=== PATIENT | male | born 1990 | race Caucasian/White ===

== ENCOUNTER 2023-02-21 18:03 | Outpatient (REF) | payer MEDICARE, MEDICAID, SELFPAY ==
[2023-02-27 14:33] LABS: C.Trachomatis RNA TMA, Rectal NOT DETECTED; N.Gonorrhoeae RNA TMA, Rectal NOT DETECTED
[2023-02-27 15:03] LABS: C. Trachomatis RNA TMA, Throat NOT DETECTED; N. gonorrhoeae RNA TMA, Throat NOT DETECTED
== END 2023-02-21 18:04 | disposition home or self-care (01) ==
LOC: HO.HHCLNP 18:03
PROVIDERS: Visit Provider Internal Medicine
DX: B20 Human immunodeficiency virus [HIV] disease (principal)
CPT/HCPCS: 87491; 87591

== ENCOUNTER 2023-03-15 15:24 | Outpatient (REF) | payer MEDICARE, MEDICAID, SELFPAY | END 2023-03-15 15:25 | disposition home or self-care (01) | LOC: HO.HHCL 15:24 | PROVIDERS: Referring Provider Internal Medicine; Visit Provider Nurse Practitioner Family | DX: Z00.00 Encounter for general adult medical examination without abnormal findings (principal); Z11.4 Encounter for screening for human immunodeficiency virus [HIV] | CPT/HCPCS: 36415; 80053; 80061; 84443; 85025; 86359; 86360; 87536 ==

== ENCOUNTER 2023-08-16 09:58 | Outpatient (REF) | payer MEDICARE, MEDICAID, SELFPAY ==
[2023-08-16 11:22] LABS: Appearance Urine Clear; Color Urine Yellow; Glucose Urine UA Negative (Negative); Leukocyte Esterase Urine Negative (Negative); Nitrite Urine Negative (Negative); Urine Blood Negative (Negative); Urine Ketones Negative (Negative); Urine Protein Negative (Neg-Trace)
[2023-08-16 11:26] LABS: MANUAL DIFF FLAG NO
[2023-08-16 11:31] LABS: Basophils Percent Auto 0.2 % (0-2); Eosinophils Absolute Auto 0.1 X10*3/uL (0.0-0.4); Eosinophils Percent Auto 0.7 % (0-4); Hematocrit 45.1 % (42.0-52.0); Hemoglobin 15.3 g/dl (14.0-18.0); Imm Gran Abs Auto 0.06 X10*3/uL (0.00-0.03); Imm Gran Pct Auto 0.7 % (0.0-0.4); Lymphocytes Absolute Auto 3.2 X10*3/uL (1.2-4.9); Lymphocytes Percent Auto 36.5 % (20-40); Mean Corpuscular HGB Conc 33.9 g/dl (31.0-36.0); Mean Corpuscular Hemoglobin 30.1 pg (27.0-33.0); Mean Corpuscular Volume 88.6 fL (80.0-98.0); Mean Platelet Volume 10.1 fL (9.4-12.4); Monocytes Absolute Auto 0.9 X10*3/uL (0.1-1.2); Monocytes Percent Auto 10.3 % (2-11); Neutrophils Absolute Auto 4.6 x10*3/uL (2.0-8.3); Neutrophils Percent Auto 51.6 % (45-73); Platelet Count 254 X10*3/uL (160-400); Red Blood Count 5.09 X10*6/uL (4.60-5.80); Red Cell Distribution Width 12.5 % (11.0-16.0); White Blood Count 8.9 X10*3/uL (4.8-10.8)
[2023-08-16 12:41] LABS: Alanine Aminotransferase 44 U/L (0-40); Alkaline Phosphatase 87 U/L (39-117); Anion Gap 10 (12-20); Aspartate Amino Transferase 27 U/L (5-37); Bilirubin Total 0.3 mg/dL (0.0-1.0); Blood Urea Nitrogen 13 mg/dL (9-16); Carbon Dioxide 27 mmol/L (22-29); Chloride 108 mmol/L (96-108); Estimated Glomerular Filt Rate > 60; Glucose Random 79 mg/dL (60-115); Potassium 4.2 mmol/L (3.3-5.1); Sodium 141 mmol/L (135-145); Total Protein 7.4 g/dL (6.5-8.0)
[2023-08-17 15:19] LABS: HIV RNA PCR Qn Copies 399 copies/mL (NOT DETECTED)
[2023-08-19 14:09] LABS: RPR Rapid Plasma Reagin REACTIVE (NON-REACTIVE)
== END 2023-08-16 09:59 | disposition home or self-care (01) ==
LOC: HO.HHCL 09:58
PROVIDERS: Visit Provider Internal Medicine
DX: Z21 Asymptomatic human immunodeficiency virus [HIV] infection status (principal)
CPT/HCPCS: 36415; 80053; 81003; 85025; 86592; 86593; 87536

== ENCOUNTER 2023-08-24 02:43 | Emergency (ER) | payer MEDICARE, MEDICAID, SELFPAY ==
[2023-08-24 02:58] VITALS: BP 134/86; PULSE 93; RESP 18; TEMP 36.8; O2SAT 97; BMI 38.4
[2023-08-24 03:13] LABS: Basophils Percent Auto 0.4 % (0-2); Eosinophils Absolute Auto 0.2 X10*3/uL (0.0-0.4); Eosinophils Percent Auto 2.1 % (0-4); Hematocrit 44.3 % (42.0-52.0); Hemoglobin 15.4 g/dl (14.0-18.0); Imm Gran Abs Auto 0.07 X10*3/uL (0.00-0.03); Imm Gran Pct Auto 0.8 % (0.0-0.4); Lymphocytes Absolute Auto 3.7 X10*3/uL (1.2-4.9); Lymphocytes Percent Auto 44.9 % (20-40); MANUAL DIFF FLAG NO; Mean Corpuscular HGB Conc 34.8 g/dl (31.0-36.0); Mean Corpuscular Hemoglobin 30.2 pg (27.0-33.0); Mean Corpuscular Volume 86.9 fL (80.0-98.0); Mean Platelet Volume 9.7 fL (9.4-12.4); Monocytes Absolute Auto 0.7 X10*3/uL (0.1-1.2); Monocytes Percent Auto 8.8 % (2-11); Neutrophils Absolute Auto 3.6 x10*3/uL (2.0-8.3); Platelet Count 216 X10*3/uL (160-400); Red Cell Distribution Width 12.5 % (11.0-16.0); White Blood Count 8.3 X10*3/uL (4.8-10.8)
[2023-08-24 03:26] LABS: Alanine Aminotransferase 40 U/L (0-40); Albumin Level 3.6 g/dL (3.5-5.0); Alkaline Phosphatase 100 U/L (39-117); Anion Gap 11 (12-20); Aspartate Amino Transferase 22 U/L (5-37); Bilirubin Total 0.2 mg/dL (0.0-1.0); Blood Urea Nitrogen 13 mg/dL (9-16); Calcium 8.8 mg/dL (8.4-10.2); Carbon Dioxide 22 mmol/L (22-29); Chloride 113 mmol/L (96-108); Estimated Glomerular Filt Rate > 60; Glucose Random 109 mg/dL (60-115); Potassium 3.9 mmol/L (3.3-5.1); Sodium 142 mmol/L (135-145); Total Protein 6.8 g/dL (6.5-8.0)
--- NOTE | 2023-08-24 04:27 | ED.NAVMDI ---
HPI - Nausea/Vomiting/Diarrhea General Chief complaint: Abdominal Pain Stated complaint: Diarrhea/Nausea Time Seen by Provider: 08/24/23 04:10 Source: patient Mode of arrival: ambulatory Limitations: no limitations History of Present Illness HPI Narrative: 33 yo male with PMH of HIV undetectal viral load on meds presents after eating a chili dog on from street cart in [place] had n/v/d and cramps that are improving had brief blood in stool but that improved he feels better went to work at [employer] they found out send him here for clearanace. MD elicited complaint: nausea, vomiting, diarrhea and abdominal pain Onset (ago): day(s) ( ) Description of vomiting: food contents Description of diarrhea: watery Associated nausea: Yes Associated abdominal pain: Yes Location of pain: diffuse Pain consistency: now resolved Severity: mild Quality: cramping Exacerbating factors: eating Relieving factors: none Context: possible food poisoning and sick contacts Associated symptoms: denies other symptoms Related Data Previous Rx's Medication Instructions Recorded ondansetron 4 mg disintegrating 4 mg PO Q8H PRN nausea and 08/24/23 tablet vomiting #20 tabs Allergies Allergy/AdvReac Type Severity Reaction Status Date / Time No Known Allergies Allergy Unverified 08/20/23 12:39 Review of Systems Review of Systems: Constitutional : No Weight loss, No Fever, No Chills ENT/Mouth : No sore throat, No Rhinorrhea Eyes: No Swelling, No Redness Cardiovascular : No Chest Pain, No SOB, NoEdema Respiratory : No Cough, No Sputum, No Wheezing Gastrointestinal : Positive Nausea, no Vomiting, positive Diarrhea, no abdominal Pain Genitourinary : No Dysuria, No Urinary Frequency, No Hematuria, No Urgency Musculoskeletal : No joint pain, No Myalgias, No Joint Swelling Skin : No Skin Lesions, No rash Neuro : No Weakness, No Numbness, No Dizziness, No Headache Psych : No Anxiety/Panic, No Depression All other systems reviewed and are negative. Gastrointestinal: Gastrointestinal: Reports nausea PMFSH Past Medical History Attestation statement: The following information was validated with the patient. Source: old records reviewed Medical History HIV (human immunodeficiency virus infection) Social History Social History (Updated 08/24/23 @ 04:38 by Lottie Interiano DO) Patient Tobacco Use Status: Never used Tobacco Physical Exam Vital Signs: Vital Signs: Last Vital Signs Temp 98.3 F 08/24/23 02:58 Pulse 93 08/24/23 02:58 Resp 18 08/24/23 02:58 BP 134/86 08/24/23 02:58 Pulse Ox 97 08/24/23 02:58 O2 Del Method Room Air 08/24/23 02:58 BMI result Body Mass Index 38.4 Appearance: Alert. Oriented X3. No acute distress. Eyes: Pupils equal, round and reactive to light. ENT: Pharynx normal. Neck: Normal inspection. Neck supple. CVS: Normal heart rate and rhythm. Pulses normal. Respiratory: No respiratory distress. Breath sounds normal. Abdomen: Soft and nontender. Skin: Skin warm and dry. Normal skin color. Normal skin turgor. Extremities: No lower extremity edema. No calf ttp Neuro: Oriented X 3. No motor deficit. No sensory deficit. Medical Decision Making Medical Decision Making [facility] Narrative: 33 yo male witih food exposure now with resolved n/v abdominal cramps gone and diarrhea improved did see episode of pink diarrhea but no tasneem clots. He has HIV but viral loads undetectable at this time likely food toxicity labs reassuring can be DC will send home wi supportive care. Differential Diagnosis Differential Diagnoses: The differential diagnosis associated with the presentation includes food poisoning, viral syndrome Admission/Observation Consideration of admission/observation: Escalation of care including admission/observation considered labs reassuring stable for DC Lab Data [facility] Lab Attestation statement: I reviewed the patient's lab results. 08/24/23 03:09 08/24/23 03:09 Labs: Lab Results 08/24/23 Range/Units 03:09 WBC 8.3 (4.8-10.8) X10*3/uL RBC 5.10 (4.60-5.80) X10*6/uL Hgb 15.4 (14.0-18.0) g/dl Hct 44.3 (42.0-52.0) % MCV 86.9 (80.0-98.0) fL MCH 30.2 (27.0-33.0) pg MCHC 34.8 (31.0-36.0) g/dl RDW 12.5 (11.0-16.0) % Plt Count 216 (160-400) X10*3/uL MPV 9.7 (9.4-12.4) fL Immature Gran % (Auto) 0.8 H (0.0-0.4) % Neut % (Auto) 43.0 L (45-73) % Lymph % (Auto) 44.9 H (20-40) % Kingfisher % (Auto) 8.8 (2-11) % Eos % (Auto) 2.1 (0-4) % Baso % (Auto) 0.4 (0-2) % Lymph # (Auto) 3.7 (1.2-4.9) X10*3/uL Kingfisher # (Auto) 0.7 (0.1-1.2) X10*3/uL Eos # (Auto) 0.2 (0.0-0.4) X10*3/uL Baso # (Auto) 0.0 (0.0-0.2) X10*3/uL Abs Immat Gran (auto) 0.07 H (0.00-0.03) X10*3/uL Absolute Neuts (auto) 3.6 (2.0-8.3) x10*3/uL Absolute Nucleated RBC 0.000 (0.0-0.012) X10*3/uL Nucleated RBC % (auto) 0.0 (0.0-0.2) /100WBC Sodium 142 (135-145) mmol/L Potassium 3.9 (3.3-5.1) mmol/L Chloride 113 H (96-108) mmol/L Carbon Dioxide 22 (22-29) mmol/L Anion Gap 11 L (12-20) BUN 13 (9-16) mg/dL Creatinine 0.72 (0.5-1.4) mg/dL Estim Creat Clear Calc 200.0 Estimated GFR > 60 Random Glucose 109 (60-115) mg/dL Calcium 8.8 (8.4-10.2) mg/dL Total Bilirubin 0.2 (0.0-1.0) mg/dL AST 22 (5-37) U/L ALT 40 (0-40) U/L Alkaline Phosphatase 100 (39-117) U/L Total Protein 6.8 (6.5-8.0) g/dL Albumin 3.6 (3.5-5.0) g/dL Independent Historian Clinical information obtained from an independent historian. History obtained from or confirmed by: Friend Prescription Management I considered prescription management with: Other Discharge Plan Discharge Clinical Impression: Food poisoning Patient Disposition: Home, Self-Care Instructions: Food Poisoning (ED) Additional Instructions: return for increased pain, fevers, clots in stool or any other concerns. you can take immodium if you do not have any of the above such as worsening pain, feverss, increased bleeding Prescriptions: New ondansetron 4 mg tablet,disintegrating 4 mg PO Q8H PRN (Reason: nausea and vomiting) Qty: 20 0RF Stand Alone Forms: Work/School Release
[2023-08-24 04:38] VITALS: BP 134/86; PULSE 93; RESP 18; TEMP 36.8; O2SAT 97
== END 2023-08-24 04:39 | disposition home or self-care (01) ==
PROVIDERS: Emergency Provider Emergency Medicine; PCP Nurse Practitioner Family
DX: A05.9 Bacterial foodborne intoxication, unspecified (principal); R11.2 Nausea with vomiting, unspecified; R19.7 Diarrhea, unspecified; B20 Human immunodeficiency virus [HIV] disease
CPT/HCPCS: 36415; 80053; 85025; 99283

== ENCOUNTER 2023-08-25 09:11 | Emergency (ER) | payer OTHER, MEDICARE, MEDICAID, SELFPAY ==
--- NOTE | ~2023-08-25 | XR_ITS ---
EXAMINATION: XR LUMBOSACRAL SPINE CLINICAL INFORMATION: Reason for Exam right lumbar pain s/p heavy lifting COMPARISON: Lumbar spine radiographs 10/01/2021 TECHNIQUE: 3 views of the lumbar spine FINDINGS: 5 nonrib-bearing lumbar-type vertebral bodies. Vertebral body heights are maintained. Alignment is maintained. Disc space heights are maintained. Paravertebral soft tissues are unremarkable. XR/XR lumbar spine 2-3V IMPRESSION: * Unremarkable lumbar spine radiographs.
[2023-08-25 09:19] VITALS: BP 146/74; PULSE 86; RESP 16; TEMP 36.7; O2SAT 98; BMI 36.5
--- NOTE | 2023-08-25 09:43 | ED_ITS ---
HPI - Back Pain/Injury General Chief Complaint: Back Pain/Injury Stated Complaint: Work injury - seen yesterday Time Seen by Provider: 08/25/23 09:28 Source: patient Mode of arrival: ambulatory Limitations: no limitations History of Present Illness HPI Narrative: 33 year old male with pmhx significant for HIV presents to the ED today for evaluation of right lower back pain s/p heavy lifting prior to arrival. He s tates he was working as an [employer] employee when he attempted to catch a 60 lb box and felt his right lower back strain. Since this time he endorses severe pain to his right lower back and states I strained something . Pain is localized to his right lower back and does not radiate. States the area is tender to the touch. Moving/ambulating exacerbates the pain. Reports taking 200 mg of Tylenol prior to arrival. This has never happened to him before. Denies history of back problems. Denies history of IV drug use. Denies history of spinal surgeries. Denies fever, chills, nausea or vomiting, dysuria, hematuria, numbness/tingling/weakness of the lower extremities, saddle anesthesia, bowel or bladder incontinence or retention. Related Data Previous Rx's Medication Instructions Recorded ondansetron 4 mg disintegrating 4 mg PO Q8H PRN nausea and 08/24/23 tablet vomiting #20 tabs cyclobenzaprine 5 mg tablet 5 mg PO BEDTIME PRN muscle spasm 08/25/23 #7 tabs lidocaine 5 % topical patch 1 patch topical DAILY #15 ea 08/25/23 (Lidoderm) naproxen 500 mg tablet 500 mg PO Q8-12H PRN pain (scale 08/25/23 score 4-6) #10 tabs Allergies Allergy/AdvReac Type Severity Reaction Status Date / Time No Known Allergies Allergy Unverified 08/20/23 12:39 Review of Systems Review of Systems: Constitutional: No fever, chills, fatigue, night sweats, weight changes ENT/Mouth: No ear pain, hearing loss, nasal congestion, sinus pain, rhinorrhea, sore throat Eyes: No eye pain, swelling, redness, vision changes, discharge Cardio: No chest pain, palpitations, WOOD, orthopnea, peripheral edema Pulm: No SOB, cough, sputum, wheezing, dyspnea, hemoptysis GI: No nausea, vomiting, hematemesis, abdominal pain, diarrhea, constipation, hematochezia, melena : No irregular bleeding, dysuria, frequency, urgency, hesitancy, hematuria, flank pain, urinary flow changes, urinary incontinence or retention MSK: +back pain, No neck pain, joint pain, myalgias Skin: No lesions, rashes Neuro: No weakness, numbness, paresthesias, LOC, dizziness, headache All other systems reviewed and are negative. [facility] [place] Past Medical History Attestation statement: The following information was validated with the patient. Source: old records reviewed and nursing notes reviewed Medical History HIV (human immunodeficiency virus infection) Social History Social History Patient Tobacco Use Status: Never used Tobacco Smoked in Last 30 Days: No Advance Directives: Yes Advance Directives Information Provided: Yes Advance Directives on File: No Physical Exam Vital Signs: Vital Signs: Last Vital Signs Temp 97.9 F 08/25/23 13:43 Pulse 72 08/25/23 13:43 Resp 18 08/25/23 13:43 BP 131/82 08/25/23 13:43 Pulse Ox 98 08/25/23 13:43 O2 Del Method Room Air 08/25/23 13:43 BMI result Body Mass Index 36.5 Patient hypertensive. Afebrile. Const: Other: + utilizing a wheelchair from triage to ED bed General: cooperative, healthy appearing, comfortable, no acute distress, alert and awake Orientation/consciousness: patient oriented x3 HEENT: Head: Yes normal to inspection, Yes normocephalic and Yes atraumatic Eyes: General: appearance normal, both eyes and all related structures Pupils: Equal, round and reactive pupils present EOM: EOMs intact bilaterally Neck: Other: + no cervical midline spinous tenderness or step-off deformity. Neck: Yes normal visual inspection, Yes full ROM and Yes no meningeal signs Resp: Effort & Inspection: normal respiratory effort and able to speak in complete sentences Auscultation: clear to auscultation bilaterally Cardio: Rate: regular rate Rhythm: regular rhythm GI: Inspection: Yes normal to inspection and No abdominal wall ecchymosis Palpation (GI): Soft to palpation and nontender : General: Yes no CVA tenderness Back/Spine/Pelvis: Other: No overlying deformity or cellulitic changes. No warmth. No midline spinous tenderness or step-off deformity. + lumbar paraspinal muscle tenderness to palpation. No palpable mass. Positive straight leg raise on right Back: no CVA tenderness Skin: General skin exam: no rashes or lesions noted Neuro: Other: Strength 5/5 intact throughout. No saddle anesthesia.?Sensation intact to light touch.?Neurovascular intact distally.? 2+ patellar DTRs intact bilaterally. General: patient oriented x3, tone normal, moves all extremities and no meningeal signs Cranial nerves: Yes Equal, round and reactive pupils present Gait exam (Neuro): Normal gait present Extrem: General: Yes normal to inspection, Yes full ROM and Yes capillary refill normal Course Course Course Narrative: 1217-- On re-valuation, patient reports significant improvement in pain with Flexeril, Toradol lidocaine patch. He is able to move around with only slight discomfort now. Given improvement in symptoms muscle relaxer, patient likely has a strain of the right lumbar paraspinal region. On review of x-ray lumbar spine, I do not appreciate any acute fracture, compression. Awaiting x-ray results to officially rule out fracture. 1350-- x-ray lumbar spine unremarkable. No evidence of soft tissue injury or vertebral fracture. Discussed results with patient. Will send patient home with Flexeril, Lidoderm patch and naproxen. he is ambulating with steady gait. his friend at bedside will be driving him home today. Patient has remained stable throughout ED visit today. Discussed worrisome signs and symptoms and when to return to the ED. All questions answered at this time. Patient is agreeable with disposition and stable for discharge. Medications Administered Discontinued Medications Generic Name Dose Route Start Last Admin Trade Name Freq PRN Reason Stop Dose Admin Cyclobenzaprine HCl 10 mg 08/25/23 09:46 08/25/23 09:55 Cyclobenzaprine Hcl 10 Mg Tablet PO 08/25/23 09:47 10 mg ONCE ONE Administration Ketorolac Tromethamine 30 mg 08/25/23 09:46 08/25/23 09:55 Ketorolac Tromethamine 30 Mg/Ml Vial IM 08/25/23 09:47 30 mg ONCE ONE Administration Lidocaine 1 patch 08/25/23 09:46 08/25/23 09:55 Lidocaine 4 % Patch Adh..Patch TRANSDERMA 08/25/23 09:47 1 patch ONCE ONE Administration Protocol Medical Decision Making Medical Decision Making [facility] Narrative: 33 year old male with pmhx significant for HIV presents to the ED today for evaluation of right lower back pain s/p heavy lifting prior to arrival. Patient hypertensive, vitals otherwise WNL. Afebrile. He is nontoxic-appearing and in no acute distress. Lying comfortably on the exam bed. Of note he did utilize wheelchair to get from triage to ED bed. No CVAT. Back without overlying deformity or cellulitic changes. No warmth. No midline spinous tenderness or step-off deformity. Lumbar paraspinal muscle tenderness to palpation. No palpable mass. Positive straight leg raise on right. Sensation intact to light touch throughout. Strength 5/5 intact. 2+ patellar DTRs intact bilaterally. Differential diagnosis includes lumbar sprain/strain, fracture, subluxation, disc herniation, sciatica. Unlikely cord compression, cauda equina, Guillain- Waldorf, epidural abscess. Plan for imaging and pain control. Differential Diagnosis Differential Diagnoses: The differential diagnosis associated with the presentation includes as above Admission/Observation Not indicated. Independent Interpretation I performed an independent interpretation of an: Plain X-Ray Interpretation: I personally reviewed x-ray and agree with radiologist's interpretation. Radiology Impression Discussion of test interpretation with radiology: I have reviewed the radiologist's reading. Radiologist Impression: EXAMINATION: XR LUMBOSACRAL SPINE CLINICAL INFORMATION: Reason for Exam right lumbar pain s/p heavy lifting COMPARISON: Lumbar spine radiographs 10/01/2021 TECHNIQUE: 3 views of the lumbar spine FINDINGS: 5 nonrib-bearing lumbar-type vertebral bodies. Vertebral body heights are maintained. Alignment is maintained. Disc space heights are maintained. Paravertebral soft tissues are unremarkable. XR/XR lumbar spine 2-3V IMPRESSION: * Unremarkable lumbar spine radiographs. External Record Review External record reviewed: Inpatient record Prescription Management I considered prescription management with: Pain Medication and Other (Muscle relaxer, steroid) Social Determinants Patient?s care significantly limited by Social Determinants of Health including: Other Social Determinant of Health Discharge Plan Discharge Clinical Impression: Strain of lumbar paraspinous muscle, Encounter for assessment of work-related causation of injury Patient Disposition: Home, Self-Care Instructions: Naproxen (By mouth), Cyclobenzaprine (By mouth), Lidocaine Patch (On the skin), Muscle Strain (ED), Low Back Strain (ED), Acute Low Back Pain (ED), Lower Back Exercises (ED) Additional Instructions: Your imaging studies today did not show acute fracture. Your pain is likely musculoskeletal. Avoid bending, lifting, or twisting. Use ice several times per day for 20 minutes at a time for the next 48 hours and then change to heat. Flexeril is a muscle relaxer. Take this at night as it makes you drowsy. Do not drive, drink alcohol, or operate machinery while taking it. Naproxen is an anti-inflammatory / pain medication. Take with food. Do not take this with Ibuprofen. Lidoderm patches are numbing patches. Apply to painful areas. In addition you may take Tylenol at home. Follow up with your primary care provider as needed If your pain worsens, if you develop new numbness, tingling, weakness, loss of bowel or bladder function call 911 or return to the ER immediately for evaluation. As this was a work-related injury, you have been provided with the contact information for [facility]: [phone] Prescriptions: New cyclobenzaprine 5 mg tablet 5 mg PO BEDTIME PRN (Reason: muscle spasm) Qty: 7 0RF lidocaine [Lidoderm] 5 % adhesive patch,medicated 1 patch topical DAILY Qty: 15 0RF Rx Instructions: leave on most painful area for up to 12 hrs naproxen 500 mg tablet 500 mg PO Q8-12H PRN (Reason: pain (scale score 4-6)) Qty: 10 0RF No Action ondansetron 4 mg tablet,disintegrating 4 mg PO Q8H PRN (Reason: nausea and vomiting) Qty: 20 0RF Referrals: [facility] [Outside] Stand Alone Forms: Work/School Release Interventions: ED Discharge Assessment Last Done: 08/25/23 13:43 Discharge Date/Time: 08/25/23 13:53
[2023-08-25] MEDS: Lidocaine 4 % Patch ADH..PATCH 1 PATCH TRANSDERMA (09:55)
[2023-08-25] MEDS: Cyclobenzaprine HCl 10 MG TABLET PO (09:55)
[2023-08-25] MEDS: Ketorolac Tromethamine 30 MG/ML VIAL IM (09:55)
[2023-08-25 12:12] VITALS: BP 131/82; PULSE 72; RESP 18; TEMP 36.6; O2SAT 98
[2023-08-25 13:43] VITALS: BP 131/82; PULSE 72; RESP 18; TEMP 36.6; O2SAT 98
== END 2023-08-25 13:53 | disposition home or self-care (01) ==
PROVIDERS: Emergency Provider Emergency Medicine; PCP Nurse Practitioner Family
DX: S39.012A Strain of muscle, fascia and tendon of lower back, initial encounter (principal); Z21 Asymptomatic human immunodeficiency virus [HIV] infection status; X50.0XXA Overexertion from strenuous movement or load, initial encounter; Y93.9 Activity, unspecified; Y92.9 Unspecified place or not applicable; Y99.9 Unspecified external cause status
CPT/HCPCS: 72100; 96372; 99284; J1885

== ENCOUNTER 2023-10-07 10:47 | Emergency (ER) | payer MEDICARE, MEDICAID, SELFPAY ==
[2023-10-07 11:05] VITALS: BP 144/81; PULSE 71; RESP 16; TEMP 36.6; O2SAT 98; BMI 34.0
[2023-10-07 11:32] LABS: MANUAL DIFF FLAG NO
[2023-10-07 11:33] LABS: Basophils Percent Auto 0.2 % (0-2); Eosinophils Percent Auto 0.3 % (0-4); Hematocrit 47.4 % (42.0-52.0); Hemoglobin 16.1 g/dl (14.0-18.0); Imm Gran Abs Auto 0.05 X10*3/uL (0.00-0.03); Imm Gran Pct Auto 0.4 % (0.0-0.4); Lymphocytes Absolute Auto 3.8 X10*3/uL (1.2-4.9); Lymphocytes Percent Auto 27.1 % (20-40); Mean Corpuscular Hemoglobin 30.4 pg (27.0-33.0); Mean Corpuscular Volume 89.4 fL (80.0-98.0); Mean Platelet Volume 9.6 fL (9.4-12.4); Monocytes Absolute Auto 0.9 X10*3/uL (0.1-1.2); Monocytes Percent Auto 6.2 % (2-11); Neutrophils Absolute Auto 9.3 x10*3/uL (2.0-8.3); Neutrophils Percent Auto 65.8 % (45-73); Platelet Count 242 X10*3/uL (160-400); Red Cell Distribution Width 13.1 % (11.0-16.0); White Blood Count 14.1 X10*3/uL (4.8-10.8)
[2023-10-07 11:58] LABS: Alanine Aminotransferase 44 U/L (0-40); Alkaline Phosphatase 83 U/L (39-117); Anion Gap 7 (12-20); Aspartate Amino Transferase 26 U/L (5-37); Bilirubin Total 0.8 mg/dL (0.0-1.0); Blood Urea Nitrogen 12 mg/dL (9-16); Calcium 9.3 mg/dL (8.4-10.2); Carbon Dioxide 30 mmol/L (22-29); Chloride 106 mmol/L (96-108); Creatinine Clr Calc Pharmacy 156.6; Estimated Glomerular Filt Rate > 60; Glucose Random 91 mg/dL (60-115); Lipase 17 U/L (8-78); Potassium 4.3 mmol/L (3.3-5.1); Sodium 139 mmol/L (135-145); Total Protein 7.5 g/dL (6.5-8.0)
[2023-10-07 12:09] LABS: Influenza A PCR NEGATIVE (Negative); Influenza B PCR NEGATIVE (Negative); Resp Syncy Virus RNA Qual PCR NEGATIVE (Negative); SARS COV2 PCR INHOUSE NEGATIVE (Negative)
--- NOTE | 2023-10-07 14:04 | MHC.EDTECH ---
EGK done now due to EKG machine down.
== END 2023-10-07 16:29 | disposition left against medical advice (07) ==
PROVIDERS: Emergency Provider Emergency Medicine; PCP Nurse Practitioner Family
DX: R10.9 Unspecified abdominal pain (principal); R50.9 Fever, unspecified; R11.0 Nausea; Z11.52 Encounter for screening for COVID-19; Z20.822 Contact with and (suspected) exposure to COVID-19; Z79.899 Other long term (current) drug therapy
CPT/HCPCS: 0241U; 80053; 83690; 85025; 99281; 99283

== ENCOUNTER 2023-11-11 02:53 | Emergency (ER) | payer MEDICARE, MEDICAID, SELFPAY ==
--- NOTE | ~2023-11-11 | XR_ITS ---
EXAMINATION: XR CHEST CLINICAL INFORMATION: Shortness of breath, asthma COMPARISON: 02/21/2019 TECHNIQUE: Frontal view of the chest was obtained. FINDINGS: The lungs are clear with no focal consolidation. No evidence of pneumothorax, pulmonary edema, or pleural effusions. The cardiomediastinal silhouette is unremarkable. No acute osseous findings. XR/XR chest 1V IMPRESSION: No acute cardiopulmonary findings.
[2023-11-11 03:28] VITALS: BP 133/76; PULSE 85; RESP 20; TEMP 37.2; O2SAT 98; BMI 36.3
[2023-11-11 03:50] LABS: IDNOW Serial# 08D9AD1C; Strep A Nucleic Acid Negative (Negative)
[2023-11-11 04:20] LABS: Influenza A PCR NEGATIVE (Negative); Influenza B PCR NEGATIVE (Negative); Resp Syncy Virus RNA Qual PCR NEGATIVE (Negative); SARS COV2 PCR INHOUSE NEGATIVE (Negative)
--- NOTE | 2023-11-11 07:48 | ED.GENADULT ---
HPI - General Adult General Chief complaint: Fever Stated complaint: fever , body ache Time Seen by Provider: 11/11/23 07:45 Source: patient Mode of arrival: ambulatory Limitations: no limitations History of Present Illness ED Provider: Dr. Aviles HPI narrative: Patient with fever, vomiting and not feeling well for a few days was sent home by [employer] last night, needs a not for work Onset (ago): day(s) Severity: mild Related Data Previous Rx's ?Medication ?Instructions ?Recorded ondansetron 4 mg disintegrating 4 mg PO Q8H PRN nausea and 08/24/23 tablet vomiting #20 tabs cyclobenzaprine 5 mg tablet 5 mg PO BEDTIME PRN muscle spasm 08/25/23 #7 tabs lidocaine 5 % topical patch 1 patch topical DAILY #15 ea 08/25/23 (Lidoderm) naproxen 500 mg tablet 500 mg PO Q8-12H PRN pain (scale 08/25/23 score 4-6) #10 tabs Allergies Allergy/AdvReac Type Severity Reaction Status Date / Time No Known Allergies Allergy Verified 11/11/23 03:31 Review of Systems Review of Systems: Yes all other systems are reviewed and are negative Neurologic: Denies Sensory deficit (Neuro) [facility] Past Medical History Medical History HIV (human immunodeficiency virus infection) Social History Social History Patient Tobacco Use Status: Never used Tobacco Advance Directives: No Advance Directives Information Provided: No Do you have a plan to hurt others: No Plan Physical Exam ED Vital Signs: Vital Signs - 24 hr 11/11/23 03:28 Temperature 98.9 F Pulse Rate 85 Respiratory Rate 20 Blood Pressure 133/76 Pulse Oximetry 98 Oxygen Delivery Method Room Air BMI result Body Mass Index 36.3 Const General: healthy appearing Nutritional Appearance: average body habitus Orientation/consciousness: oriented to person and patient oriented x3 Limitations: no limitations HENMT Head: Yes normal to inspection Ears: external ears normal General nose exam: Normal external nose present Mouth: Normal oral and palatal mucosa present and oropharynx normal Throat: Yes posterior oropharynx normal Eyes General: appearance normal, both eyes and all related structures Neck Neck: Yes normal visual inspection Chest Chest palpation & inspection: normal inspection of the chest Resp Auscultation: clear to auscultation bilaterally Cardio Jugular venous distension: no JVD Rate: regular rate Rhythm: regular rhythm Heart sounds: S1 normal heart sound present and S2 normal heart sound present GI Inspection: Yes normal to inspection Palpation (GI): Soft to palpation, nontender and No hepatosplenomegaly present Auscultation: normal bowel sounds General: Yes no CVA tenderness Back/Spine/Pelvis Back: no CVA tenderness Skin General skin exam: no rashes or lesions noted Neuro General: oriented to person and patient oriented x3 Cranial nerves: Yes CN's II-XII intact bilaterally Motor exam (neuro): 5/5 motor strength present throughout Sensory Exam: No Sensory deficit (Neuro) Extrem General: Yes normal to inspection Psych Appearance: grossly normal Course Reevaluation(s) Reevaluation #1: Patient with viral illness will dc home Time: 07:58 Medical Decision Making Differential Diagnosis Differential Diagnoses: The differential diagnosis associated with the presentation includes (Flu, covid, rsv and pneumonia were considered) Admission/Observation Consideration of admission/observation: Escalation of care including admission/observation considered (upon arrival patient was considered for admission) Lab Data MDM Lab Attestation statement: I reviewed the patient's lab results. Labs: Lab Results 11/11/23 Range/Units 03:36 Influenza Type A (PCR) NEGATIVE (Negative) Influenza Type B (PCR) NEGATIVE (Negative) RSV RNA Qual (PCR) NEGATIVE (Negative) SARS-CoV-2 RNA (RT-PCR) NEGATIVE (Negative) S. pyogenes GrpA TUCKER Negative (Negative) Independent Interpretation I performed an independent interpretation of an: Plain X-Ray (CXR: no infiltrate) Prescription Management I considered prescription management with: Antibiotic (antibiotic considered but no infiltrate on xray) Discharge Plan Discharge Clinical Impression: Viral infection Patient Disposition: Home, Self-Care Instructions: Viral Syndrome (ED) Additional Instructions: you may take the zofran that you have at home for nausea and vomiting Prescriptions: No Action ondansetron 4 mg tablet,disintegrating 4 mg PO Q8H PRN (Reason: nausea and vomiting) Qty: 20 0RF cyclobenzaprine 5 mg tablet 5 mg PO BEDTIME PRN (Reason: muscle spasm) Qty: 7 0RF lidocaine [Lidoderm] 5 % adhesive patch,medicated 1 patch topical DAILY Qty: 15 0RF Rx Instructions: leave on most painful area for up to 12 hrs naproxen 500 mg tablet 500 mg PO Q8-12H PRN (Reason: pain (scale score 4-6)) Qty: 10 0RF Referrals: Winifred Madrid NP [Primary Care Provider] - 1 week Stand Alone Forms: Work/School Release Print Language: Tamazight
[2023-11-11 08:07] VITALS: BP 144/84; PULSE 88; RESP 16; TEMP 36.9; O2SAT 98
[2023-11-11 08:13] VITALS: BP 144/84; PULSE 88; RESP 16; TEMP 36.9; O2SAT 98
== END 2023-11-11 08:14 | disposition home or self-care (01) ==
PROVIDERS: Emergency Provider Emergency Medicine; PCP Nurse Practitioner Family
DX: B34.9 Viral infection, unspecified (principal); R50.9 Fever, unspecified; R11.10 Vomiting, unspecified; B20 Human immunodeficiency virus [HIV] disease; Z03.818 Encounter for observation for suspected exposure to other biological agents ruled out
CPT/HCPCS: 0241U; 71045; 87651; 99283

== ENCOUNTER 2024-01-06 13:06 | Outpatient (REF) | payer MEDICARE, MEDICAID, SELFPAY ==
[2024-01-06 16:06] LABS: MANUAL DIFF FLAG NO
[2024-01-06 16:15] LABS: Basophils Percent Auto 0.2 % (0-2); Eosinophils Absolute Auto 0.1 X10*3/uL (0.0-0.4); Eosinophils Percent Auto 0.8 % (0-4); Hematocrit 48.7 % (42.0-52.0); Hemoglobin 16.8 g/dl (14.0-18.0); Imm Gran Abs Auto 0.06 X10*3/uL (0.00-0.03); Imm Gran Pct Auto 0.7 % (0.0-0.4); Lymphocytes Absolute Auto 3.5 X10*3/uL (1.2-4.9); Mean Corpuscular HGB Conc 34.5 g/dl (31.0-36.0); Mean Corpuscular Hemoglobin 30.3 pg (27.0-33.0); Mean Corpuscular Volume 87.9 fL (80.0-98.0); Mean Platelet Volume 10.4 fL (9.4-12.4); Monocytes Absolute Auto 0.8 X10*3/uL (0.1-1.2); Monocytes Percent Auto 8.7 % (2-11); Neutrophils Absolute Auto 4.4 x10*3/uL (2.0-8.3); Neutrophils Percent Auto 49.6 % (45-73); Platelet Count 253 X10*3/uL (160-400); Red Blood Count 5.54 X10*6/uL (4.60-5.80); Red Cell Distribution Width 12.7 % (11.0-16.0); White Blood Count 8.8 X10*3/uL (4.8-10.8)
[2024-01-06 16:33] LABS: Alanine Aminotransferase 63 U/L (0-40); Albumin Level 4.1 g/dL (3.5-5.0); Alkaline Phosphatase 86 U/L (39-117); Anion Gap 12 (12-20); Aspartate Amino Transferase 36 U/L (5-37); Bilirubin Total 0.7 mg/dL (0.0-1.0); Blood Urea Nitrogen 9 mg/dL (9-16); Calcium 9.3 mg/dL (8.4-10.2); Carbon Dioxide 23 mmol/L (22-29); Chloride 107 mmol/L (96-108); Estimated Glomerular Filt Rate > 60; Glucose Random 99 mg/dL (60-115); Sodium 138 mmol/L (135-145); Total Protein 7.6 g/dL (6.5-8.0)
[2024-01-08 14:08] LABS: RPR Rapid Plasma Reagin REACTIVE (NON-REACTIVE)
[2024-01-09 14:28] LABS: HIV RNA PCR Qn Copies 1070 copies/mL (NOT DETECTED); HIV RNA PCR Qn Log Copies 3.03 (NOT DETECTED)
[2024-01-09 14:33] LABS: Absolute CD3 Count 2463 cells/uL (840-3060); Absolute CD4 Count 980 cells/uL (490-1740); Absolute CD8 Count 1480 cells/uL (180-1170); Absolute Lymphocytes 3565 cells/uL (850-3900); CD4 CD8 Ratio 0.66 (0.86-5.00); Percent CD3 Cells 69 % (57-85); Percent CD4 Cells 27 % (30-61); Percent CD8 Cells 42 % (12-42)
== END 2024-01-06 13:07 | disposition home or self-care (01) ==
LOC: HO.HHCL 13:06
PROVIDERS: Visit Provider Internal Medicine
DX: Z21 Asymptomatic human immunodeficiency virus [HIV] infection status (principal)
CPT/HCPCS: 36415; 80053; 85025; 86359; 86360; 86592; 86593; 87536